=== PATIENT | female | born 1970 | race Caucasian/White ===

== ENCOUNTER → 2016-04-09 | Outpatient (CLI) | payer OTHER ==
--- NOTE | 2016-04-09 10:09 | WOMENS IMAGING REPORT ---
EXAM DESCRIPTION: U/S ABDOMEN LIMITED COMPLETED DATE/TIME: 04/09/2016 8:37 am REASON FOR STUDY: R94.5 ABNORMAL LIVER FUNCTION STUDIES R94.5 ABNORMAL RESULTS OF LIVER FUNCTION ST UDIES COMPARISON: None. TECHNIQUE: Dynamic and static grayscale images acquired of the abdomen and recorded on PACS. Additio nal selected color Doppler and spectral images recorded. LIMITATIONS: None. FINDINGS: PANCREAS: Midline pancreas unremarkable LIVER: Normal size. Diffuse increased echogenicity from fatty infiltration. Difficult to visualize the inferior vena cava and deeper hepatic structures. LIVER VASCULATURE: Normal directional flow of the main portal vein and hepatic veins. GALLBLADDER: No stones. Normal wall thickness. No pericholecystic fluid. ULTRASOUND-DETECTED BURKETT'S SIGN: Negative. INTRAHEPATIC DUCTS AND COMMON DUCT: CBD and intrahepatic ducts normal caliber. No filling defects. INFERIOR VENA CAVA: Normal flow. AORTA: No aneurysm. RIGHT KIDNEY: Normal size. Normal echogenicity. No solid or suspicious masses. No hydronephrosis. No calcifications. PERITONEAL AND RIGHT PLEURAL SPACE: No ascites or effusions. OTHER: No other significant findings. TECHNICAL DOCUMENTATION: JOB ID: [id number] [employer]- All Rights Reserved
== END ==
LOC: WI 07:44
PROVIDERS: ATTEND Internal Medicine Gastroenterology
DX: R94.5 Abnormal results of liver function studies (principal)
CPT/HCPCS: 76705

== ENCOUNTER 2018-05-05 15:48 | Emergency (ER) | payer OTHER ==
[2018-05-05] MEDS ORDERED: KETOROLAC TROMETHAMINE INJ/PF 30 MG/1 ML SDV IM ONE (16:23)
[2018-05-05] MEDS ORDERED: DEXAMETHASONE SOD PHOS INJ 10 MG/1 ML VIAL IM ONE (16:23)
--- NOTE | 2018-05-05 16:26 | ER Document Report ---
Addendum entered and electronically signed by JANY MARK PA-C 05/05/18 20:14: Discharge - Discharge Clinical Impression: Low back pain Qualifiers: Chronicity: acute Back pain laterality: bilateral Sciatica presence: unspecified whether sciatica present Qualified Code(s): M54.5 - Low back pain Condition: Stable Disposition: HOME, SELF-CARE Instructions: Low Back Pain ([facility]) Additional Instructions: Rest, Ice Tylenol/ibuprofen as needed Light stretches daily Strength exercises as able Moist heat and massage may help F/u with your PCP in 3-5 days for a recheck Set up an appointment with either orthopedics or neurosurgery for further evaluation and management Return to the ED with any worsening symptoms and/or development of fever, headache, chest pain, palpitations, syncope, shortness of breath, trouble breathing, abdominal pain, n/v/d, blood in stool/urine, loss of control of bowel/bladder, urinary retention, muscle weakness/paralysis, saddle anesthesia, numbness/tingling, or other worsening symptoms that are concerning to you. Prescriptions: Cyclobenzaprine HCl [Flexeril 10 mg Tablet] 10 mg PO TIDP PRN #15 tab PRN Reason: Morphine Sulfate [Morphine Ir 15 Mg Tablet] 15 mg PO TID #12 tablet Naproxen 500 mg PO BID #10 tablet Forms: Return to Work Referrals: [facility] [Provider Group] - Follow up as needed RO CARY MD [Primary Care Provider] - Follow up as needed JANY MERCEDES MD [COMMUNITY BASED STAFF] - Follow up as needed Course - Re-evaluation Re-evalutation: Pt did require IM dilaudid 1mg for better pain control after review with Dr. Flores. Pt did much better and is ready to go home. - Vital Signs Vital signs: Temp Pulse Resp BP Pulse Ox 98.1 F 84 18 115/77 96 05/05/18 19:16 05/05/18 19:16 05/05/18 16:10 05/05/18 19:16 05/05/18 19:16 Original Note: HPI - HPI Time Seen by Provider: 05/05/18 16:16 Pain Level: 5 Notes: Patient is a 47-year-old female with no significant past medical history presents the emergency department complaining of lower midline back pain times 4 days. Patient states that she may have twisted wrong and felt something pop in her back. Patient states that she did not have immediate pain, but the next morning from the incident noticed that her back was very painful primarily with bending and twisting movements. Patient states that the pain has been pers istent. Patient states that she otherwise has a sedentary position at work and does not do many exercises. The pain will radiate into her posterior legs bilaterally. Patient states that she is having difficulty standing and ambulating because of the pain and the sensation to her lower legs. She has not had any history of spinal abscess or IV drug abuse. She is eating and drinking without difficulty. She is urinating normally and having normal bowel movements. Denies drug allergies. Denies any headache, fever, URI, sore throat, chest pain, palpitations, syncope, cough, shortness of breath, wheeze, dyspnea, abdominal pain, nausea/vomiting/diarrhea, urinary retention, dysuria, hematuria, loss of control of bowel or bladder, numbness/tingling, saddle anesthesia, muscle paralysis/weakness, or rash. - ROS Systems Reviewed and Negative: Yes All other systems reviewed and negative - REPRODUCTIVE Reproductive: DENIES: : Past Medical History - Social History Smoking Status: Never Smoker Family History: Reviewed & Not Pertinent Vertical Provider Document - CONSTITUTIONAL Agree With Documented VS: Yes Notes: PHYSICAL EXAMINATION: GENERAL: Well-appearing, well-nourished and in no acute distress. LUNGS: Breath sounds clear to auscultation bilaterally and equal. No wheezes rales or rhonchi. HEART: Regular rate and rhythm without murmurs, rubs, gallops. ABDOMEN: Soft, nontender, nondistended abdomen. No guarding, no rebound. No masses appreciated. Normal bowel sounds present. No CVA tenderness bilateral ly. No pulsatile mass Rectal: tone intact (witnessed by ELMIRA Donald) Musculoskeletal: LE's b/l: FROM to passive/active. Strength 5+/5. No deficits noted. No bony tenderness of extremities. Back: LROM to passive/active. Strength 5+/5. No vertebral point tenderness, stepoffs, or deformities. No other bony tenderness, erythema, swelling, or ecchymosis. SLR negative b/l. No SI jt tenderness. No foot drop. Pt could barely stand erect for a period of time due to the pain and is not moving comfortably. Extremities: No cyanosis, clubbing, or edema b/l. Peripheral pulses 2+. Capillary refill less than 2 seconds. NEUROLOGICAL: Normal speech, ataxic gait. Normal sensory, motor exams. Reflexes 2+ b/l. PSYCH: Normal mood, normal affect. SKIN: Warm, Dry, normal turgor, no rashes or lesions noted. - INFECTION CONTROL TRAVEL OUTSIDE OF THE [place] IN LAST 30 DAYS: No Course - Re-evaluation Re-evalutation: 05/05/18 16:[address] Flores: We will obtain an MRI of the back to further evaluate. Pt will also be given toradol/decadron. Pt in agreement with plan. 05/05/18 19:09 Patient is an afebrile, well-hydrated, 47-year-old female who presents to the ED with low back pain, see MRI (small protrusion L5-s1). Vitals are acceptable. PE is otherwise unremarkable for any focal neurological deficits. Patient was given Decadron, Toradol. She has no significant tachycardia, tachypnea, or hypoxia. She is nontoxic-appearing and is tolerating p.o. without difficulties. There are no signs of infection. No other red flag symptoms noted. No other labs or imaging warranted at this time based on H&P. Pt was able to move around the room and ambulate to the bathroom. Low suspicion for any meningitis, fracture, expanding/ruptured AAA, cauda equina syndrome, epidural mass lesion/abscess, herniated disc causing severe spinal stenosis, or other systemic infection at this time. Patient is aware that this condition can change from initial presentation and that she needs monitor symptoms closely for any acute changes. I will send her home with a prescription for flexeril and naproxen. Conservative measures otherwise for symptoms. Recheck with your PCM in 3-5 days. Schedule a consult with orthopedic/neurosurgery. Return to the ED with any worsening/concerning symptoms otherwise as reviewed discharge. Patient is in agreement. - Vital Signs Vital signs: Temp Pulse Resp BP Pulse Ox 97.8 F 92 18 110/78 100 05/05/18 16:10 05/05/18 16:10 05/05/18 16:10 05/05/18 16:10 05/05/18 16:10 Discharge - Discharge Clinical Impression: Low back pain Qualifiers: Chronicity: acute Back pain laterality: bilateral Sciatica presence: unspecified whether sciatica present Qualified Code(s): M54.5 - Low back pain Condition: Stable Disposition: HOME, SELF-CARE Instructions: Low Back Pain ([facility]) Additional Instructions: Rest, Ice Tylenol/ibuprofen as needed Light stretches daily Strength exercises as able Moist heat and massage may help F/u with your PCP in 3-5 days for a recheck Set up an appointment with either orthopedics or neurosurgery for further evaluation and management Return to the ED with any worsening symptoms and/or development of fever, headache, chest pain, palpitations, syncope, shortness of breath, trouble breathing, abdominal pain, n/v/d, blood in stool/urine, loss of control of bowel/bladder, urinary retention, muscle weakness/paralysis, saddle anesthesia, numbness/tingling, or other worsening symptoms that are concerning to you. Prescriptions: Cyclobenzaprine HCl [Flexeril 10 mg Tablet] 10 mg PO TIDP PRN #15 tab PRN Reason: Naproxen 500 mg PO BID #10 tablet Forms: Return to Work Referrals: RO CARY MD [Primary Care Provider] - Follow up as needed [facility] [Provider Group] - Follow up as needed JANY MERCEDES MD [COMMUNITY BASED STAFF] - Follow up as needed
--- NOTE | 2018-05-05 18:50 | RADIOLOGY REPORT (SQ) ---
EXAM DESCRIPTION: MRI LUMBAR SPINE WITHOUT COMPLETED DATE/TIME: 05/05/2018 6:15 pm REASON FOR STUDY: Low back pain, ataxic gait COMPARISON: None. TECHNIQUE: Sagittal and Axial imaging includes T1, T2, STIR and gradient echo sequences. Coronal T2/ HASTE imaging. LIMITATIONS: None. FINDINGS: VISUALIZED UPPER ABDOMEN: Limited evaluation. No acute or suspicious findings suggested. SEGMENTATION: Transitional anatomy. Large S1-S2 disc space. ALIGNMENT: Anatomic. VERTEBRAE: Intact. BONE MARROW: Reactive endplate changes L2-3, L3-4, L4-5, L5-S1. DISC SIGNAL: Normal. No significant abnormal signal or loss of height. POSTERIOR ELEMENTS: Generally intact. No pars defect evident. HARDWARE: None in the spine. CORD AND CONUS: Normal in size and signal intensity. Conus at the appropriate level. SOFT TISSUES: No aortic aneurysm seen. No bulky retroperitoneal adenopathy or mass. No paraspinal mas s or fluid. L1-L2: No significant spinal stenosis or exit foraminal stenosis. L2-L3: No significant spinal stenosis or exit foraminal stenosis. L3-L4: No significant spinal stenosis or exit foraminal stenosis. L4-L5: No significant spinal stenosis or exit foraminal stenosis. L5-S1: Small right paracentral disc protrusion mildly flattening the intrathecal right S1 root. No n arrowing of the exit foramina. LOWER THORACIC: Incompletely imaged. No stenosis seen. SACRUM: Visualized upper sacrum intact. OTHER: No other significant findings. IMPRESSION: L5-S1 with small right paracentral protrusion mildly flattening the intrathecal right S1 root. TECHNICAL DOCUMENTATION: JOB ID: [id number] [employer]- All Rights Reserved Reading location - IP/workstation name: [email or web address]
[2018-05-05 19:20] VITALS: BP 115/77
[2018-05-05] MEDS ORDERED: HYDROMORPHONE HCL INJ/PF 2 MG/ML AMPULE IM ONE (19:31)
[2018-05-05] MEDS ORDERED: HYDROCODONE/ACETAMINOPHEN 5-325 MG (6 TAB/ER DISP) PO PRN (20:13)
== END 2018-05-05 20:21 | disposition home or self-care (01) ==
LOC: ER 15:48
DX: M54.5 Low back pain (principal)
CPT/HCPCS: 99283; 96372; 72148; J1885; J1170; J1100